=== PATIENT | female | born 1940 | race Two or more races ===

== ENCOUNTER 2020-07-25 08:11 | Inpatient (IN) | payer MEDICARE, OTHER ==
[~2020-07-25] VITALS: Ht 152.4 cm; Wt 38.1 kg
[2020-07-25] VITALS (7 sets, daily range): BP systolic 133–166; BP diastolic 55–94
--- NOTE | 2020-07-25 08:22 | Emergency Room Report ---
History of Present Illness General Chief Complaint: General Complaint Source: Patient, EMS Present Illness HPI Patient is a 80-year-old female past medical history of hyperlipidemia and dementia who was brought into the emergency room for right hip pain. Patient was brought in by EMS from home. Per EMS patient is confused at baseline. Family members told EMS the patient has been laying in bed for a week due to right hip pain. They do not recall any falls or trauma. Patient states that she has pain in her abdomen and her right hip. She denies any headache or dizziness. She denies any chest pain or shortness of breath. History is limited due to patient's baseline confusion Allergies: Coded Allergies: No Known Allergies (Unverified , 07/25/20) COVID-19 Screening Contact w/high risk pt: No Experienced COVID-19 symptoms?: No COVID-19 Testing performed AGING DEPARTMENT SUPERVISOR: No Patient History Reviewed Nursing Documentation: PMH: Agreed; PSxH: Agreed Review of Systems All Other Systems: limited - dementia Physical Exam Vital Signs Date Time Temp Pulse Resp B/P (MAP) Pulse Ox O2 Delivery O2 Flow Rate FiO2 07/25/20 08:09 98.2 95 16 162/96 (118) 99 Room Air Sp02 EP Interpretation: reviewed, normal General Appearance: no apparent distress, alert, non-toxic Head: normocephalic, atraumatic Eyes: bilateral eye normal inspection, bilateral eye PERRL ENT: dry mucus membranes Neck: full range of motion, no meningismus Respiratory: chest non-tender, lungs clear, no respiratory distress, no accessory muscle use Cardiovascular #1: regular rate, rhythm Gastrointestinal: soft, no guarding, no rebound, other - Complains of abdominal tenderness but I cannot elicit any pain on my examination. Rectal: deferred Musculoskeletal: other - Right hip tenderness on passive range of motion diffuse L-spine tenderness to palpation Neurologic: exercise specialist III-XII nml as tested Psychiatric: no suicidal/homicidal ideation Skin: no rash Lymphatic: no adenopathy Medical Decision Making Diagnostic Impression: Primary Impression: Burst fracture of lumbar vertebra Additional Impressions: Hematoma Spinal stenosis ER Course Patient CT consistent with burst fracture of L2 about 10 to 20% at the superior endplate with mild surrounding hematoma and moderate central spinal stenosis as well as an additional 20% superior plate burst fracture of L3 which appears acute to subacute. Patient's labs demonstrate no significant acute abnormalities. Patient given IV fentanyl for pain control. Patient is neurologically intact. She has no saddle anesthesia. She has no focal neurologic deficits. No severe stenosis seen on CT. Patient kept in spinal precautions. MRI of the lumbar spine has been ordered and is pending at the time of admission. Admitting physician to follow-up on this and will call spinal consultation. Patient be admitted for further treatment and evaluation. Laboratory Tests Test 07/25/20 08:16 07/25/20 09:20 White Blood Count 5.4 K/UL (4.8-10.8) Red Blood Count 4.75 M/UL (4.20-5.40) Hemoglobin 14.5 G/DL (12.0-16.0) Hematocrit 45.4 % (37.0-47.0) Mean Corpuscular Volume 96 FL (80-99) Mean Corpuscular Hemoglobin 30.5 PG (27.0-31.0) Mean Corpuscular Hemoglobin Concent 31.9 G/DL (32.0-36.0) L Red Cell Distribution Width 11.9 % (11.6-14.8) Platelet Count 304 K/UL (150-450) Mean Platelet Volume 6.6 FL (6.5-10.1) Neutrophils (%) (Auto) 75.7 % (45.0-75.0) H Lymphocytes (%) (Auto) 16.5 % (20.0-45.0) L Monocytes (%) (Auto) 6.1 % (1.0-10.0) Eosinophils (%) (Auto) 0.4 % (0.0-3.0) Basophils (%) (Auto) 1.3 % (0.0-2.0) Prothrombin Time 10.7 SEC (9.30-11.50) Prothrombin Time INR 1.0 (0.9-1.1) Activated Partial Thromboplast Time 26 SEC (23-33) Sodium Level 140 MMOL/L (136-145) Potassium Level 4.2 MMOL/L (3.5-5.1) Chloride Level 101 MMOL/L (98-107) Carbon Dioxide Level 21 MMOL/L (21-32) Anion Gap 18 mmol/L (5-15) H Blood Urea Nitrogen 30 mg/dL (7-18) H Creatinine 0.7 MG/DL (0.55-1.30) Estimated Glomerular Filtration Rate > 60 mL/min (>60) Glucose Level 170 MG/DL (74-106) H Calcium Level 9.4 MG/DL (8.5-10.1) Magnesium Level 2.0 MG/DL (1.8-2.4) Total Bilirubin 0.9 MG/DL (0.2-1.0) Aspartate Amino Transferase (AST) 32 U/L (15-37) Alanine Aminotransferase (ALT) 15 U/L (12-78) Alkaline Phosphatase 111 U/L (46-116) Total Creatine Kinase 164 U/L (26-308) Troponin I 0.035 ng/mL (0.000-0.056) Total Protein 8.4 G/DL (6.4-8.2) H Albumin 3.8 G/DL (3.4-5.0) Globulin 4.6 g/dL Albumin/Globulin Ratio 0.8 (1.0-2.7) L Lipase 97 U/L (73-393) Urine Color Yellow Urine Appearance Clear Urine pH 5 (4.5-8.0) Urine Specific [place] 1.030 (1.005-1.035) Urine Protein 2+ (NEGATIVE) H Urine Glucose (UA) Negative (NEGATIVE) Urine Ketones 4+ (NEGATIVE) H Urine Blood 3+ (NEGATIVE) H Urine Nitrite Negative (NEGATIVE) Urine Bilirubin Negative (NEGATIVE) Urine Urobilinogen Normal MG/DL (0.0-1.0) Urine Leukocyte Esterase Negative (NEGATIVE) Urine RBC 2-4 /HPF (0 - 2) H Urine WBC 0-2 /HPF (0 - 2) Urine Squamous Epithelial Cells Few /LPF (NONE/OCC) Urine Bacteria Few /HPF (NONE) Microbiology Date/Time Source Procedure Growth Status 07/25/20 08:26 Nasopharynx SARS-CoV-2 Antigen (Rapid)(MAXI) - Final Complete EKG Diagnostic Results Troponin ordered: Yes When was troponin ordered?: Jul 25, 2020 EKG Time: 08:14 EP Interpretation: Earlene Piper MD Rate: normal - 79 bpm Rhythm: NSR ST Segments: other - T wave inversions V1 through V4 with ST depressions in V2 and V3 shaky baseline ASA given to the pt in ED: No Rhythm Strip Diag. Results Rhythm Strip Time: 08:21 EP Interpretation: yes - Earlene Piper MD Rate: 79 bpm Rhythm: NSR, no PVC's, no ectopy Chest X-Ray Diagnostic Results Chest X-Ray Diagnostic Results : Chest X-Ray Ordered: Yes # of Views/Limited/Complete: 1 View Indication: Other - weakness EP Interpretation: Yes Interpretation: no consolidation, no effusion, no pneumothorax, no acute cardiopulmonary disease Impression: No acute disease Electronically Signed by: Earlene Piper MD Last Vital Signs Date Time Temp Pulse Resp B/P (MAP) Pulse Ox O2 Delivery O2 Flow Rate FiO2 07/25/20 08:09 98.2 95 16 162/96 (118) 99 Room Air Disposition: ADMITTED INPATIENT - Medical Surgical Floor Condition: Critical Physician Consult: Dr. Joy at 11 am Additional Instructions: Please note that this report is being documented using [employer] technology. This can lead to erroneous entry secondary to incorrect interpretation by the dictating instrument. Earlene Piper M.D. Jul 25, 2020 08:22
[2020-07-25] MEDS ORDERED: fentaNYL 100 mcg/2 mL IV ONE ×2 (08:30→10:15)
[2020-07-25 08:36] LABS: BASOPHILS % (AUTO) 1.3 % (0.0-2.0); EOSINOPHILS % (AUTO) 0.4 % (0.0-3.0); HEMATOCRIT 45.4 % (37.0-47.0); HEMOGLOBIN 14.5 G/DL (12.0-16.0); LYMPHOCYTES % (AUTO) 16.5 % (20.0-45.0); MEAN CORPUSCULAR VOLUME 96 FL (80-99); MONOCYTES % (AUTO) 6.1 % (1.0-10.0); NEUTROPHILS % (AUTO) 75.7 % (45.0-75.0); PLATELET COUNT 304 K/UL (150-450); RED BLOOD COUNT 4.75 M/UL (4.20-5.40); RED CELL DISTRIBUTION WIDTH 11.9 % (11.6-14.8); WHITE BLOOD COUNT 5.4 K/UL (4.8-10.8)
[2020-07-25 08:48] LABS: ANION GAP 18 mmol/L (5-15); BLOOD UREA NITROGEN 30 mg/dL (7-18); CALCIUM 9.4 MG/DL (8.5-10.1); CARBON DIOXIDE 21 MMOL/L (21-32); CHLORIDE 101 MMOL/L (98-107); CREATININE 0.7 MG/DL (0.55-1.30); POTASSIUM 4.2 MMOL/L (3.5-5.1); SODIUM 140 MMOL/L (136-145)
--- NOTE | 2020-07-25 08:50 | NUR ---
pt BIBA from home for R hip pain. pt laying in bed per family, refusing to walk. on arrival, pt has pain with palpation to R hip. pt A&Ox3, unable to states birthday. pt undergoing eval for dementia per family. this is pt baseline. pt denies falling at home. pt denies pmh. IV placed, labs drawn. pt medicated per eMAR. EKG performed. pt on continuous cardiac/O2 monitor. 0845: pt taken to CT 0853: pt back from CT
[2020-07-25 08:51] LABS: ALANINE AMINOTRANSFERASE 15 U/L (12-78); ALBUMIN 3.8 G/DL (3.4-5.0); ALBUMIN/GLOBULIN RATIO 0.8 (1.0-2.7); ALKALINE PHOSPHATASE 111 U/L (46-116); ASPARTATE AMINO TRANSFERASE 32 U/L (15-37); BILIRUBIN,TOTAL 0.9 MG/DL (0.2-1.0)
[2020-07-25 08:53] LABS: CREATINE KINASE 164 U/L (26-308)
--- NOTE | 2020-07-25 08:59 | Diagnostic Imaging Report ---
EXAM: XR Chest, 1 View CLINICAL HISTORY: ABD PAIN TECHNIQUE: Frontal view of the chest. COMPARISON: No relevant prior studies available. FINDINGS: Lungs: Unremarkable. No consolidation. Pleural space: Unremarkable. No pneumothorax. Heart: Unremarkable. No cardiomegaly. Mediastinum: Unremarkable. Bones/joints: Unremarkable. IMPRESSION: Normal chest x-ray.
--- NOTE | 2020-07-25 09:02 | Diagnostic Imaging Report ---
EXAM: XR Right Hip With Pelvis When Performed, 2 or 3 Views CLINICAL HISTORY: ABD PAIN TECHNIQUE: Two or three views of the right hip with pelvis when performed. COMPARISON: No relevant prior studies available. FINDINGS: Bones/joints: Unremarkable. No acute fracture. No dislocation. Soft tissues: Unremarkable. IMPRESSION: Normal right hip x-rays.
--- NOTE | 2020-07-25 09:23 | Diagnostic Imaging Report ---
EXAM: CT Abdomen and Pelvis Without Intravenous Contrast CLINICAL HISTORY: ABD PAIN TECHNIQUE: Axial computed tomography images of the abdomen and pelvis without intravenous contrast. CTDI is 2 mGy and DLP is 113 mGy-cm. One or more of the following dose reduction techniques were used: automated exposure control, adjustment of the mA and/or kV according to patient size, use of iterative reconstruction technique. COMPARISON: No relevant prior studies available. FINDINGS: Lung bases: Unremarkable. No mass. No consolidation. ABDOMEN: Liver: Unremarkable. Gallbladder and bile ducts: Unremarkable. No calcified stones. No ductal dilation. Pancreas: Unremarkable. No ductal dilation. Spleen: Unremarkable. No splenomegaly. Adrenals: Unremarkable. No mass. Kidneys and ureters: Unremarkable. No obstructing stones. No hydronephrosis. Stomach and bowel: Unremarkable. No obstruction. No mucosal thickening. PELVIS: Appendix: No findings to suggest acute appendicitis. Bladder: There is moderate distention of urinary bladder consistent with urinary retention. No stones. Reproductive: Unremarkable as visualized. ABDOMEN and PELVIS: Intraperitoneal space: Unremarkable. No free air. No significant fluid collection. Bones/joints: There is a 10-20% superior endplate burst fracture of L2 which appears acute with mild surrounding hematoma. There is a 3 mm retropulsion of fracture fragments with moderate central spinal stenosis with the AP dimension central canal measuring 7 mm. There is an additional 20% superior plate burst fracture of L3 which has an acute to subacute appearance. No significant retropulsed fragments identified at this level. No additional lumbar spine or pelvic fractures are identified. No dislocation. Soft tissues: Unremarkable. Vasculature: Unremarkable. No abdominal aortic aneurysm. Lymph nodes: Unremarkable. No enlarged lymph nodes. IMPRESSION: 1. There is a 10-20% superior endplate burst fracture of L2 which appears acute with mild surrounding hematoma. There is a 3 mm retropulsion of fracture fragments with moderate central spinal stenosis with the AP dimension central canal measuring 7 mm. There is an additional 20% superior plate burst fracture of L3 which has an acute to subacute appearance. No significant retropulsed fragments identified at this level. 2. There is moderate distention of urinary bladder consistent with urinary retention. <MYCVCSECTION> Communications: 07/25/20 09:32 Verify Receipt Verified receipt with skiver machineParesh Vallecillo in the ER for Dr. Shepard on 07/25 09:32 (-08:00)
[2020-07-25] MEDS ORDERED: Gadavist 7.5mMol/7.5ml vial IV PRN (09:30)
[2020-07-25 09:34] LABS: APPEARANCE,URINE CLEAR; BILIRUBIN, URINE NEGATIVE (NEGATIVE); GLUCOSE, URINE (UA) NEGATIVE (NEGATIVE); KETONES,URINE 4+ (NEGATIVE); LEUKOCYTE ESTERASE ,URINE NEGATIVE (NEGATIVE); NITRITE,URINE NEGATIVE (NEGATIVE); PH,URINE 5 (4.5-8.0); PROTEIN,URINE 2+ (NEGATIVE); UROBILINOGEN,URINE NORMAL MG/DL (0.0-1.0)
[2020-07-25] MEDS ORDERED: LORazepam Inj 2mg/ml 1ml IV ONE (10:15)
[2020-07-25 10:18] LABS: COLOR,URINE YELLOW
--- NOTE | 2020-07-25 10:26 | NUR ---
0900: pt on continuous cardiac/O2 monitor. educated pt to lay flat to decrease pain. 1015: pt restless. updated. medicated per eMAR. pt on continuous cardiac/O2 monitor. VSS. will continue to monitor.
[2020-07-25] MEDS ORDERED: Morphine Sulfate 4mg/ml Inj (IV USE ONLY) IVP ONE (14:30)
--- NOTE | 2020-07-25 14:43 | NUR ---
1130: pt resting in bed. pt on continuous cardiac/O2 monitor. will continue to assess. no signs of distress noted at this time. 1330: pt resting in bed. pt on continuous cardiac/O2 monitor. will continue to assess. no signs of distress noted at this time. 1400: pt in room. pt pulled out IV access. pt took off all monitor leads. 1435: placed second iv. wrapped with gauze to protect site. pt placed on monitor. pt now resting in bed. will continue to monitor. no signs of distress noted. pt medicated per eMAR. VSS. seizure pads placed on bedrails to provide extra protection & comfort if pt rolls in bed.
[2020-07-25] MEDS: D5NS 1,000 ML IV SCH ×2 (15:24→22:14)
[2020-07-25] MEDS: Docusate 250mg cap ORAL SCH (18:00)
--- NOTE | 2020-07-25 18:09 | NUR ---
1600: pt resting in bed. given po fluids. pt calm & cooperative. will continue to monitor. VSS at this time. 1800: attempted to call report, no RN available for report. pt on continuous cardiac/O2 monitor. will continue to monitor. VSS.
--- NOTE | 2020-07-25 18:18 | NUR ---
pt resting in bed. no signs of distress. pt sleeping. on continuous cardiac/O2 monitor. VSS. will continue to monitor.
[2020-07-25] MEDS ORDERED: Morphine Sulfate 2mg/ml Inj(IV/IM USE ONLY) IVP PRN (22:00)
[2020-07-25] MEDS: Heparin 5000 units/ml inj SUBQ SCH (22:14)
[2020-07-26] VITALS (7 sets, daily range): BP systolic 90–166; BP diastolic 57–94
[2020-07-26] MEDS: HYDROcodone/Acetamin 10/325 tab ORAL PRN ×2 (00:49→15:45)
--- NOTE | 2020-07-26 06:28 | NUR ---
NURSE HAND-OFF: Important Events on Shift: no significant changes noted since time of admission. pain managed well with ordered medication with good results. continues to be confused too and forgetful; needs repeated re-orientation; bed alarm on at all times. admission skin assessment done and completed; no open pressure injuries; all pressure points intact; noted however was the right hip with blanchable redness; optifoam applied on sacral/coccyx and bilateral hips. VSS; afebrile. Patient Status: stable Diet: see chart Pending Orders: see chart Pending Results/Labs: see chart Pending MD notification:see chart Latest Vital Signs: Temperature 98.5 , Pulse 67 , B/P 93 /57 , Respiratory Rate 18 , O2 SAT 95 , Room Air, O2 Flow Rate . Vital Sign Comment: see above Latest Shah Fall Score: 70 Fall Risk: High Risk Safety Measures: Call light Within Reach, Bed Alarm Zone 2, Side Rails Side Rails x2, Bed position Low and Locked. Fall Precautions: Yellow Socks Door Sign Patient Fall Education Report will be given to DAWN Jean
--- NOTE | 2020-07-26 07:45 | NUR ---
NURSE NOTES: Pt lying in bed w/bed in lowest position, bed alarm on, and call light within reach. Pt knows name only and is very confused. IV site intact/asymptomatic w/IVF infusing; F/C patent/draining well; and skin intact. Will continue to monitor.
--- NOTE | 2020-07-26 08:14 | History and Physical Report ---
DATE OF ADMISSION: 07/25/2020 CHIEF COMPLAINT: Back pain. HISTORY OF PRESENT ILLNESS: This is a 80-year-old female brought in by family members with complaints of difficulty getting out of bed and generalized pain. The patient denies any recent falls or trauma. In the ER, she had a CT scan of the back that showed a L2 20% burst compression fracture with a small amount of a hematoma. The patient denies any focal weakness, numbness, or incontinence. Chest x-ray was unremarkable as was a hip x-ray. She is now admitted for further evaluation. PAST MEDICAL HISTORY: None. PAST SURGICAL HISTORY: None. CURRENT MEDICATIONS: None. FAMILY HISTORY: None. SOCIAL HISTORY: The patient denies any tobacco, ethanol, or drugs. REVIEW OF SYSTEMS: Positive only for back pain. PHYSICAL EXAMINATION: VITAL SIGNS: Temperature 98, pulse 67, respirations 18, and blood pressure 93/57. GENERAL: The patient is well developed, in no apparent distress. HEART: Regular rate and rhythm. LUNGS: Clear. ABDOMEN: Soft, nontender and nondistended. EXTREMITIES: Without clubbing, cyanosis, or edema. Motor strength is 5/5 bilaterally. Sensation is intact bilaterally. Reflexes 2+. LABORATORY DATA: Labs are normal coags. White count was 5, hemoglobin 14, and platelets 304,000. Sodium 140, potassium 4.2, and creatinine 0.7. ASSESSMENT: This is a 80-year-old female with no past medical history, who presents with complaints of back pain secondary to compression fracture of the lumbar spine. PLAN: MRI of the L-spine. We will try to obtain spine consultation. PT/OT evaluations will be obtained. Plan of care will be determined after review of MRI. The patient may need to be transferred for higher level of care pending MRI results. Hubert Joy M.D. DR: Troy JOB#: [id number] CC:
[2020-07-26] MEDS: Heparin 5000 units/ml inj SUBQ SCH ×2 (08:27→20:46)
[2020-07-26] MEDS: Docusate 250mg cap ORAL SCH ×2 (08:28→18:13)
--- NOTE | 2020-07-26 09:12 | NUR ---
RD ASSESSMENT & RECOMMENDATIONS SEE CARE ACTIVITY FOR COMPLETE ASSESSMENT DAILY ESTIMATED NEEDS: Needs based on Underweight 37.3kg 30-40 kcals/kg 7195-6833 total kcals 1-1.5 g protein/kg 37-56 g total protein 25-35ml/kcal mL/kg 933-1306 total fluid mLs NUTRITION DIAGNOSIS: Increased kcal and pro needs r/t underweight status as evidenced by noted upper body moderate wasting, underweight per guidelines, @84% [place] Body Weight. CURRENT DIET: regular PO DIET RECOMMENDATIONS: Regular diet/ texture per HEALTH MANAGER ADDITIONAL RECOMMENDATIONS: 1) Ensure TID 2) Obtain A1C, eval of BG 3) Monitor hydration status 4) Daily calibrated bed scale wts 5) HEALTH MANAGER eval for appropriate texture
[2020-07-26] MEDS ORDERED: Haloperidol Decanoate (Long Acting) 50mg Inj IM ONE (17:15)
[2020-07-26] MEDS ORDERED: Haloperidol 5mg/ml Inj IM SCH (17:45)
--- NOTE | 2020-07-26 19:37 | NUR ---
NURSE HAND-OFF: Important Events on Shift: Pt pulled IV out twice and F/C; re-inserted by RN; administered Haldol IM for increased agitation and pt's continued attempts to get out of bed. Pt scheduled to have MRI L/S; CM to coordinate imaging study since no one available presently to do it. Patient Status: Stable Diet: Regular Pending Orders: None Pending Results/Labs: None Pending MD notification: None Latest Vital Signs: Temperature 98.4 , Pulse 83 , B/P 156 /93 , Respiratory Rate 20 , O2 SAT 97 , Room Air, O2 Flow Rate . Vital Sign Comment: Stable Latest Shah Fall Score: 70 Fall Risk: High Risk Safety Measures: Call light Within Reach, Bed Alarm Zone 2, Side Rails Side Rails x2, Bed position Low and Locked. Fall Precautions: Yellow Socks Door Sign Patient Fall Education Report given to DAWN Antonio.
[2020-07-27] VITALS (7 sets, daily range): BP systolic 120–179; BP diastolic 80–94
[2020-07-27] MEDS: D5NS 1,000 ML IV SCH (04:58)
--- NOTE | 2020-07-27 06:08 | NUR ---
NURSE HAND-OFF: Important Events on Shift: no significant changes noted this shift. No c/o of pain, SOBs or any distress. Slept most of the night, no episodes of trying to get out of bed, pulling lines or mary cath or restlessness; bed alarm on at all times. VSS; afebrile. continues to have no issues with skin integrity. Patient Status: stable Diet: see chart Pending Orders: see chart Pending Results/Labs:see chart Pending MD notification:see chart Latest Vital Signs: Temperature 97.5 , Pulse 76 , B/P 124 /83 , Respiratory Rate 16 , O2 SAT 97 , Room Air, O2 Flow Rate . Vital Sign Comment: see above Latest Shah Fall Score: 70 Fall Risk: High Risk Safety Measures: Call light Within Reach, Bed Alarm Zone 2, Side Rails Side Rails x3, Bed position Low and Locked. Fall Precautions: Yellow Socks Door Sign Patient Fall Education Report will be given to DAWN Brewster.
[2020-07-27] MEDS: HYDROcodone/Acetamin 10/325 tab ORAL PRN ×3 (08:20→22:04)
[2020-07-27] MEDS: Docusate 250mg cap ORAL SCH ×2 (08:29→17:39)
[2020-07-27] MEDS: Heparin 5000 units/ml inj SUBQ SCH ×2 (08:30→20:30)
--- NOTE | 2020-07-27 11:40 | NUR ---
CRM ANALYST NOTE PT reports she recently moved to a house and the address on facesheet is her previous address: [address] [place] [address]. Pt reports she is currently living w/ her son. Pt reports having one unmarried son, Travis Lang. SW attempted to call possible numbers for Travis Lang [phone] (vm not available) and [phone], call were not answered.
--- NOTE | 2020-07-27 11:57 | NUR ---
RESEARCH PROGRAM INTERN NOTE SLY will call back ER registration for ambulance report #[id number] at 12:30pm. Addendum: 07/27/20 at 1342 by [facility] SLY spoke pari Garrison and will look for ambulance report and fax it to this SW #[id number]
--- NOTE | 2020-07-27 12:39 | NUR ---
INVESTOR RELATIONS SPECIALIST NOTE SW spoke w/ [facility] [phone], confirmed that pt is not reported as missing. Jenni Trotter
--- NOTE | 2020-07-27 13:38 | NUR ---
Pt is bilingual Ukrainian and Hungarian
--- NOTE | 2020-07-27 16:31 | General Progress Note ---
Subjective ROS Limited/Unobtainable: Yes Constitutional: Reports: no symptoms HEENT: Reports: no symptoms Cardiovascular: Reports: no symptoms Respiratory: Reports: no symptoms Gastrointestinal/Abdominal: Reports: no symptoms Genitourinary: Reports: no symptoms Neurologic/Psychiatric: Reports: no symptoms Endocrine: Reports: no symptoms Hematologic/Lymphatic: Reports: no symptoms Allergies: Coded Allergies: No Known Allergies (Unverified , 07/25/20) All Systems: reviewed and negative except above Subjective c/o back pain. no focal weakness or numbness. no incontinence Objective Last 24 Hour Vital Signs Date Time Temp Pulse Resp B/P (MAP) Pulse Ox O2 Delivery O2 Flow Rate FiO2 07/27/20 15:55 97.9 83 18 138/93 (108) 98 07/27/20 14:32 97.9 07/27/20 12:00 97.9 72 18 120/80 (93) 96 07/27/20 09:00 Room Air 07/27/20 08:50 98.1 07/27/20 07:53 98.1 94 19 153/89 (110) 95 07/27/20 04:00 97.5 76 16 124/83 (97) 97 07/27/20 00:00 96.4 78 16 128/87 (101) 98 07/26/20 21:00 Room Air 07/26/20 20:00 98.4 74 16 140/77 (98) 99 Intake and Output 07/26/20 07/27/20 19:00 07:00 Intake Total 890 ml 840 ml Output Total 1400 ml 350 ml Balance -510 ml 490 ml Intake Oral 840 ml 240 ml IV Total 50 ml 600 ml Output Urine Total 1400 ml 350 ml Height (Feet): 5 Weight (Pounds): 84 General Appearance: WD/WN Neck: supple Cardiovascular: regular rhythm Respiratory/Chest: chest wall non-tender, lungs clear, normal breath sounds Edema: no edema noted Leg (L), no edema noted Leg (R) Neurologic: manager production II-XII grossly normal, alert Assessment/Plan Problem List: (1) Spinal stenosis ICD Codes: M48.00 - Spinal stenosis, site unspecified SNOMED: 58054945 (2) Hematoma ICD Codes: T14.8XXA - Other injury of unspecified body region, initial encounter SNOMED: 117122269 (3) Burst fracture of lumbar vertebra ICD Codes: S32.001A - Stable burst fracture of unspecified lumbar vertebra, initial encounter for closed fracture SNOMED: 436742589 Status: stable Assessment/Plan: mri lumbar spine back brace psychotherapist social worker to locate family Hubert Joy MD Jul 27, 2020 16:31
--- NOTE | 2020-07-27 18:33 | NUR ---
NURSE NOTES: PATIENT STABLE. CONFUSED; NEEDS RE DIRECTION. BED ALARM ON BED IN LOW AND LOCKED POSITION. HOURLY DONE MORE FREQUENT.
--- NOTE | 2020-07-27 19:29 | NUR ---
NURSE HAND-OFF: Important Events on Shift: NONE Patient Status: STABLE Diet: REGULAR Pending Orders: MRI L-SPINE/ NEED TO BE TRANSFERRED TO [facility] TO GET TEST DONE. Pending Results/Labs:N/A Pending MD notification: N/A Latest Vital Signs: Temperature 97.9 , Pulse 83 , B/P 138 /93 , Respiratory Rate 18 , O2 SAT 98 , Room Air. Vital Sign Comment: [] Latest Shah Fall Score: 95 Fall Risk: High Risk Safety Measures: Call light Within Reach, Bed Alarm Zone 2, Side Rails Side Rails x2, Bed position Low and Locked. Fall Precautions: Door Sign Patient Fall Education Report given to AGUSTO SEYMOUR.
--- NOTE | 2020-07-27 19:37 | NUR ---
NURSE NOTES: Patient asleep in bed, on room air no respiratory distress noted. With Zaman catheter intact and draining well. Call light and needs in reach, bed in lowest, lock engaged and alarm on. Will continue to monitor.
[2020-07-28] VITALS: BP 123/77
--- NOTE | 2020-07-28 | NUR ---
NURSE NOTES: Patient had increased blood pressure, Dr. Joy made aware. Clonidine was ordered by . Mcclure was given to patient before Clonidine order was obtained. Will continue to monitor patient.
--- NOTE | 2020-07-28 01:04 | Cardiology Progress Note ---
Subjective DATE OF SERVICE: Jul 27, 2020 Still c/o back pain No SOB or chest discomfort Objective Last 24 Hour Vital Signs Date Time Temp Pulse Resp B/P (MAP) Pulse Ox O2 Delivery O2 Flow Rate FiO2 07/27/20 21:30 179/94 (122) 07/27/20 21:00 Room Air 07/27/20 20:00 97.9 83 16 162/91 (114) 97 07/27/20 15:55 97.9 83 18 138/93 (108) 98 07/27/20 14:32 97.9 07/27/20 12:00 97.9 72 18 120/80 (93) 96 07/27/20 09:00 Room Air 07/27/20 08:50 98.1 07/27/20 07:53 98.1 94 19 153/89 (110) 95 07/27/20 04:00 97.5 76 16 124/83 (97) 97 HEENT: normal ENT inspection LUNGS: lungs clear bilaterally CARDIAC: normal rate, regular rhythm ABDOMEN: normal bowel sounds, non tender EXTREMITIES: normal range of motion, No edema Microbiology Date/Time Source Procedure Growth Status 07/25/20 08:26 Nasopharynx SARS-CoV-2 Antigen (Rapid)(MAXI) - Final Complete Assessment/Plan Assessment/Plan Acute compression fx Acute pain Abnormal EKG suggesting incomplete RBBB. No clinical hx or symptoms to suggest structural heart disease Pain control DVT prophyl Repeat EKG Check TSH Eugene Krishnan MD Jul 28, 2020 01:04
[2020-07-28 04:00] VITALS: BP 127/69
[2020-07-28 06:11] LABS: BASOPHILS % (AUTO) 1.7 % (0.0-2.0); HEMATOCRIT 41.3 % (37.0-47.0); HEMOGLOBIN 13.4 G/DL (12.0-16.0); LYMPHOCYTES % (AUTO) 26.5 % (20.0-45.0); MEAN CORPUSCULAR VOLUME 95 FL (80-99); MONOCYTES % (AUTO) 6.3 % (1.0-10.0); NEUTROPHILS % (AUTO) 59.5 % (45.0-75.0); PLATELET COUNT 277 K/UL (150-450); RED BLOOD COUNT 4.37 M/UL (4.20-5.40); RED CELL DISTRIBUTION WIDTH 11.7 % (11.6-14.8); WHITE BLOOD COUNT 5.2 K/UL (4.8-10.8)
[2020-07-28 07:00] LABS: ALANINE AMINOTRANSFERASE 22 U/L (12-78); ALBUMIN 3.2 G/DL (3.4-5.0); ALBUMIN/GLOBULIN RATIO 0.8 (1.0-2.7); ALKALINE PHOSPHATASE 99 U/L (46-116); ANION GAP 6 mmol/L (5-15); ASPARTATE AMINO TRANSFERASE 22 U/L (15-37); BILIRUBIN,TOTAL 0.4 MG/DL (0.2-1.0); BLOOD UREA NITROGEN 11 mg/dL (7-18); CALCIUM 9.1 MG/DL (8.5-10.1); CARBON DIOXIDE 34 MMOL/L (21-32); CHLORIDE 104 MMOL/L (98-107); CREATININE 0.7 MG/DL (0.55-1.30); POTASSIUM 2.9 MMOL/L (3.5-5.1); SODIUM 143 MMOL/L (136-145)
--- NOTE | 2020-07-28 07:45 | NUR ---
NURSE NOTES: Received report from DAWN Whitehead. Round was made. Pt awake, A&Ox2. Noted pt tried to go to bathroom and mary cath was pulled out. No bleeding noted. Pt no c/o pain at this time. Pt stated that pt did not know she had Mary cath so I just walked. educated pt not to get out of bed without assistance and use call light foe help. Pt verbalized understanding. Will reinsert Mary. No IV, aware. Bed in low position, locked and alarm on. Call light within reach. Will continue to monitor.
[2020-07-28 08:00] VITALS: BP 167/82
[2020-07-28] MEDS: Docusate 250mg cap ORAL SCH ×2 (08:56→17:30)
[2020-07-28] MEDS: Heparin 5000 units/ml inj SUBQ SCH ×2 (08:58→20:28)
--- NOTE | 2020-07-28 10:10 | NUR ---
NURSE NOTES: EKG done and showed Afilb. Also noted Potassium was 2.9 today. MD aware and obtained new order, order carried out. BP 167/82, HR: 68. Clonidine 0.1mg given. Will continue to monitor.
[2020-07-28 12:00] VITALS: BP 160/99
[2020-07-28] MEDS: HYDROcodone/Acetamin 10/325 tab ORAL PRN ×2 (13:13→20:27)
--- NOTE | 2020-07-28 13:33 | NUR ---
ACCOUNTING CLERK NOTES SPOKE WITH PATIENT'S SON GUS KAPLAN VERIFIED DEMOGRAPHICS. MADE AWARE OF PT TO BE TRANSFERRED OUT FOR A MRI. GUS AGREES WITH THE PLAN OF CARE AT THIS TIME. NEW INFORMATION SENT TO ADMITTING FOR AN UPDATED FACE SHEET. GUS KAPLAN [address] [place] [address]
--- NOTE | 2020-07-28 14:23 | General Progress Note ---
Subjective ROS Limited/Unobtainable: No Constitutional: Reports: malaise, weakness HEENT: Reports: no symptoms Cardiovascular: Reports: no symptoms Respiratory: Reports: no symptoms Gastrointestinal/Abdominal: Reports: no symptoms Genitourinary: Reports: no symptoms Neurologic/Psychiatric: Reports: no symptoms Endocrine: Reports: no symptoms Hematologic/Lymphatic: Reports: no symptoms Allergies: Coded Allergies: No Known Allergies (Unverified , 07/25/20) All Systems: reviewed and negative except above Subjective c/o back pain. no focal weakness or numbness. no incontinence Objective Last 24 Hour Vital Signs Date Time Temp Pulse Resp B/P (MAP) Pulse Ox O2 Delivery O2 Flow Rate FiO2 07/28/20 13:43 98.2 07/28/20 12:00 97.7 83 20 160/99 (119) 96 07/28/20 10:08 167/82 07/28/20 09:00 Room Air 07/28/20 08:00 97.7 68 20 167/82 (110) 97 07/28/20 04:00 98.2 64 20 127/69 (88) 96 07/28/20 00:00 97.9 92 20 123/77 (92) 96 07/27/20 21:30 179/94 (122) 07/27/20 21:00 Room Air 07/27/20 20:00 97.9 83 16 162/91 (114) 97 07/27/20 15:55 97.9 83 18 138/93 (108) 98 07/27/20 14:32 97.9 Intake and Output 07/27/20 07/28/20 19:00 07:00 Intake Total 300 ml Output Total 1850 ml 500 ml Balance -1550 ml -500 ml IV Total 300 ml Output Urine Total 1850 ml 500 ml Laboratory Tests 07/28/20 05:38: White Blood Count 5.2, Red Blood Count 4.37, Hemoglobin 13.4, Hematocrit 41.3, Mean Corpuscular Volume 95, Mean Corpuscular Hemoglobin 30.7, Mean Corpuscular Hemoglobin Concent 32.5, Red Cell Distribution Width 11.7, Platelet Count 277, M jade Platelet Volume 6.3L, Neutrophils (%) (Auto) 59.5, Lymphocytes (%) (Auto) 26.5, Monocytes (%) (Auto) 6.3, Eosinophils (%) (Auto) 6.0H, Basophils (%) (Auto) 1.7, Sodium Level 143, Potassium Level 2.9L, Chloride Level 104, Carbon Dioxide Level 34H, Anion Gap 6, Blood Urea Nitrogen 11, Creatinine 0.7, Estimat Glomerular Filtration Rate > 60, Glucose Level 98, Calcium Level 9.1, Total Bilirubin 0.4, Aspartate Amino Transf (AST/SGOT) 22, Alanine Aminotransferase (ALT/SGPT) 22, Alkaline Phosphatase 99, Total Protein 7.0, Albumin 3.2L, Globuli n 3.8, Albumin/Globulin Ratio 0.8L, Thyroid Stimulating Hormone (TSH) 0.786 Height (Feet): 5 Weight (Pounds): 84 General Appearance: WD/WN, alert EENT: PERRL/EOMI, normal ENT inspection Neck: non-tender, normal alignment, normal inspection Cardiovascular: normal peripheral pulses, normal rate, regular rhythm Respiratory/Chest: chest wall non-tender, lungs clear, normal breath sounds, no respiratory distress Edema: no edema noted Arm (L), no edema noted Arm (R), no edema noted Leg (L), no edema noted Leg (R) Neurologic: alert, oriented x 3 Assessment/Plan Problem List: (1) Spinal stenosis ICD Codes: M48.00 - Spinal stenosis, site unspecified SNOMED: 41347372 (2) Hematoma ICD Codes: T14.8XXA - Other injury of unspecified body region, initial encounter SNOMED: 365181688 (3) Burst fracture of lumbar vertebra ICD Codes: S32.001A - Stable burst fracture of unspecified lumbar vertebra, initial encounter for closed fracture SNOMED: 842646035 Status: stable Assessment/Plan: mri lumbar spine back brace social media sr strategy manager to locate family spine eval pending cards follow up re: Hubert Templeton MD Jul 28, 2020 14:23
--- NOTE | 2020-07-28 15:54 | NUR ---
*-*DISCHARGE PLANNING*-* CLINICALS FAXED TO [facility] P: [phone] S/W SUSAN, FOLLOW UP TOMORROW
[2020-07-28 16:00] VITALS: BP 139/109
--- NOTE | 2020-07-28 19:48 | NUR ---
NURSE HAND-OFF: Important Events on Shift:[Pt pulled out Mary, D/C mary, EKG showed Afib, MD aware. Pt confused trying to walk to bathroom without assist] Patient Status: [] Diet: [Reg] Pending Orders: [] Pending Results/Labs:[] Pending MD notification:[] Latest Vital Signs: Temperature 98.4 , Pulse 73 , B/P 139 /109 , Respiratory Rate 20 , O2 SAT 97 , Room Air, O2 Flow Rate . Vital Sign Comment: [high BP] Latest Shah Fall Score: 95 Fall Risk: High Risk Safety Measures: Call light Within Reach, Bed Alarm Zone 2, Side Rails Side Rails x2, Bed position Low and Locked. Fall Precautions: Door Sign Patient Fall Education Report given to [DAWN Thomas].
--- NOTE | 2020-07-28 19:49 | NUR ---
NURSE NOTES: Received patient in bed. A&OX1, confused, forgetful. Trying to get out of bed, reoriented. Bed in lowest position. Bed alarm on. Call light within reach. Will continue to monitor.
[2020-07-28 20:00] VITALS: BP 158/85
--- NOTE | 2020-07-28 20:05 | Cardiology Progress Note ---
Subjective DATE OF SERVICE: Jul 28, 2020 Still c/o back pain No SOB or chest discomfort Repeat EKG today reveals atrial fibrillation - rate controlled. Objective Last 24 Hour Vital Signs Date Time Temp Pulse Resp B/P (MAP) Pulse Ox O2 Delivery O2 Flow Rate FiO2 07/28/20 16:00 98.4 73 20 139/109 (119) 97 07/28/20 13:43 98.2 07/28/20 12:00 97.7 83 20 160/99 (119) 96 07/28/20 10:08 167/82 07/28/20 09:00 Room Air 07/28/20 08:00 97.7 68 20 167/82 (110) 97 07/28/20 04:00 98.2 64 20 127/69 (88) 96 07/28/20 00:00 97.9 92 20 123/77 (92) 96 07/27/20 21:30 179/94 (122) 07/27/20 21:00 Room Air HEENT: normal ENT inspection LUNGS: lungs clear bilaterally CARDIAC: normal rate, irregularly irregular ABDOMEN: normal bowel sounds, non tender EXTREMITIES: normal range of motion, No edema Laboratory Tests Test 07/28/20 05:38 White Blood Count 5.2 K/UL (4.8-10.8) Red Blood Count 4.37 M/UL (4.20-5.40) Hemoglobin 13.4 G/DL (12.0-16.0) Hematocrit 41.3 % (37.0-47.0) Mean Corpuscular Volume 95 FL (80-99) Mean Corpuscular Hemoglobin 30.7 PG (27.0-31.0) Mean Corpuscular Hemoglobin Concent 32.5 G/DL (32.0-36.0) Red Cell Distribution Width 11.7 % (11.6-14.8) Platelet Count 277 K/UL (150-450) Mean Platelet Volume 6.3 FL (6.5-10.1) L Neutrophils (%) (Auto) 59.5 % (45.0-75.0) Lymphocytes (%) (Auto) 26.5 % (20.0-45.0) Monocytes (%) (Auto) 6.3 % (1.0-10.0) Eosinophils (%) (Auto) 6.0 % (0.0-3.0) H Basophils (%) (Auto) 1.7 % (0.0-2.0) Sodium Level 143 MMOL/L (136-145) Potassium Level 2.9 MMOL/L (3.5-5.1) L Chloride Level 104 MMOL/L (98-107) Carbon Dioxide Level 34 MMOL/L (21-32) H Anion Gap 6 mmol/L (5-15) Blood Urea Nitrogen 11 mg/dL (7-18) Creatinine 0.7 MG/DL (0.55-1.30) Estimat Glomerular Filtration Rate > 60 mL/min (>60) Glucose Level 98 MG/DL (74-106) Calcium Level 9.1 MG/DL (8.5-10.1) Total Bilirubin 0.4 MG/DL (0.2-1.0) Aspartate Amino Transf (AST/SGOT) 22 U/L (15-37) Alanine Aminotransferase (ALT/SGPT) 22 U/L (12-78) Alkaline Phosphatase 99 U/L (46-116) Total Protein 7.0 G/DL (6.4-8.2) Albumin 3.2 G/DL (3.4-5.0) L Globulin 3.8 g/dL Albumin/Globulin Ratio 0.8 (1.0-2.7) L Thyroid Stimulating Hormone (TSH) 0.786 uiU/mL (0.358-3.740) Assessment/Plan Assessment/Plan Paroxysmal atrial fibrillation Acute compression fx Episodic BP elevations may be due to back pain Hypokalemia Acute pain Abnormal EKG suggesting incomplete RBBB. No clinical hx or symptoms to suggest structural heart disease Normal TSH Replace potassium Check Mg++ Full anticoagulation if no other contraindications Check 2D echo Pain control DVT prophyl Eugene Krishnan MD Jul 28, 2020 20:05
--- NOTE | 2020-07-28 21:14 | Consultation ---
DATE OF CONSULTATION: 07/26/2020 CARDIOLOGY CONSULTATION CONSULTING PHYSICIAN: Eugene Krishnan MD. REASON FOR CONSULTATION: Abnormal EKG. HISTORY OF PRESENT ILLNESS: This is a 80-year-old female. She had difficulty getting out of her bed due to back pain. She denied any recent fall or trauma. Her workup in the emergency room revealed a lumbar 2 compression fracture with small hematoma. The patient did not have any associated neurological symptoms. PAST MEDICAL HISTORY: Otherwise unremarkable. ALLERGIES: None. MEDICATIONS: None. SOCIAL HISTORY: Nonsmoker. No alcohol use. PHYSICAL EXAMINATION: VITAL SIGNS: Reviewed. Blood pressure labile. HEENT: Conjunctivae are pink. Oropharynx clear. NECK: Supple. Jugular venous pressure normal. LUNGS: Clear. CARDIAC: Regular rhythm and rate. Normal S1, S2 with a fourth heart sound. No murmur. ABDOMEN: Soft, nontender. EXTREMITIES: No edema. NEUROLOGIC: Nonfocal with reflexes 2+. LABORATORY AND DIAGNOSTIC DATA: Labs are reviewed, within normal limits. EKG with sinus rhythm, incomplete right bundle-branch block, and nonspecific ST change. IMPRESSION: 1. Lumbar compression fracture. 2. Abnormal EKG with clinically insignificant right bundle-branch block. 3. Prerenal azotemia due to mild hypovolemia. PLAN: 1. Pain control 2. DVT prophylaxis. 3. Cautious hydration. 4. Thyroid panel. 5. Repeat electrocardiogram. 6. We will follow. Eugene Krishnan M.D. DR: ORALIA JOB#: [id number] CC:
[2020-07-29] VITALS (7 sets, daily range): BP systolic 136–157; BP diastolic 71–89
[2020-07-29 06:49] LABS: ANION GAP 6 mmol/L (5-15); BLOOD UREA NITROGEN 12 mg/dL (7-18); CALCIUM 9.6 MG/DL (8.5-10.1); CARBON DIOXIDE 30 MMOL/L (21-32); CHLORIDE 105 MMOL/L (98-107); CREATININE 0.6 MG/DL (0.55-1.30); SODIUM 141 MMOL/L (136-145)
--- NOTE | 2020-07-29 07:30 | NUR ---
NURSE HAND-OFF: Important Events on Shift: Dr. Joy assessed patient. Per Dr. Joy, patient doesn't need MRI, need back brace, placement for SNF. Patient Status: confused Diet: Regular Pending Orders: Pending Results/Labs: Pending MD notification: Latest Vital Signs: Temperature 98.6 , Pulse 71 , B/P 141 /86 , Respiratory Rate 18 , O2 SAT 96 , Room Air, O2 Flow Rate . Vital Sign Comment: Latest Shah Fall Score: 85 Fall Risk: High Risk Safety Measures: Call light Within Reach, Bed Alarm Zone 2, Side Rails Side Rails x3, Bed position Low and Locked. Fall Precautions: Yellow Socks Yellow Gown Door Sign Patient Fall Education Report given to Sara SEYMOUR.
--- NOTE | 2020-07-29 07:50 | NUR ---
NURSE NOTES: Patient awake and alert,respirations unlabored . Patient sitting up in bed and eating breakfast.Report given Patient has no IV and Zaman catheter. DR Joy is aware and IV and Zaman can remain out.Bed alarm on,call light within reach.
--- NOTE | 2020-07-29 09:06 | NUR ---
RD ASSESSMENT & RECOMMENDATIONS SEE CARE ACTIVITY FOR COMPLETE ASSESSMENT DAILY ESTIMATED NEEDS: Needs based on Underweight 37.3kg 30-40 kcals/kg 2550-5463 total kcals 1-1.5 g protein/kg 37-56 g total protein 25-35ml/kcal mL/kg 933-1306 total fluid mLs NUTRITION DIAGNOSIS: Increased kcal and pro needs r/t underweight status as evidenced by noted upper body moderate wasting, underweight per guidelines, @84% [place] Body Weight. CURRENT DIET: regular PO DIET RECOMMENDATIONS: Regular diet/ texture per REPOSSESSION AGENT ADDITIONAL RECOMMENDATIONS: 1) Ensure TID 2) Obtain A1C, eval of BG 3) Monitor hydration status, improving; now no IV access 4) Daily calibrated bed scale wts 5) REPOSSESSION AGENT eval for appropriate texture
[2020-07-29] MEDS: Docusate 250mg cap ORAL SCH ×2 (09:22→18:39)
[2020-07-29] MEDS: Heparin 5000 units/ml inj SUBQ SCH ×2 (09:23→21:13)
--- NOTE | 2020-07-29 12:32 | NUR ---
SALES EFFECTIVENESS MANAGER NOTE SW spoke w/ Meli from ER [phone] that she was unable to locate the ambulance report. Pt reported to this SW that she called the ambulance. SW attempted to call Travis Gaines (possible numbers: [phone] (not answered), (not answered, vm was not set up. SW is unable to reach pt's son Travis Gaines at this time. Addendum: 07/29/20 at 1310 by [facility] Please refer CM note on 07/28/2020 1333 DCM spoke w/pt's son.
--- NOTE | 2020-07-29 12:32 | NUR ---
CLOUD SYSTEMS ADMINISTRATOR NOTES BACK BRACE TO BE DELIVERED TO THE FACILITY BY 1700.
[2020-07-29] MEDS ORDERED: XARELTO10 MG ORAL (16:54)
[2020-07-29] MEDS ORDERED: FAMOTIDINE20 MG ORAL (16:54)
[2020-07-29] MEDS ORDERED: HYDROCODON-ACE1 EA17 ORAL (16:54)
[2020-07-29] MEDS: HYDROcodone/Acetamin 10/325 tab ORAL PRN (17:07)
--- NOTE | 2020-07-29 18:26 | NUR ---
NURSE NOTES: Report given to Allie at [facility].[employer] called and time push back for cell feed department supervisor now at [phone].
--- NOTE | 2020-07-29 19:35 | NUR ---
NURSE HAND-OFF: Martha SEYMOUR Important Events on Shift:[] Patient Status: [uneventful Diet: [Regular] Pending Orders: [] Pending Results/Labs:[] Pending MD notification:[] Latest Vital Signs: Temperature 97.6 , Pulse 73 , B/P 145 /89 , Respiratory Rate 19 , O2 SAT 98 , Room Air, O2 Flow Rate . Vital Sign Comment: [] Latest Shah Fall Score: 85 Fall Risk: High Risk Safety Measures: Call light Within Reach, Bed Alarm Zone 2, Side Rails Side Rails x3, Bed position Low and Locked. Fall Precautions: Yellow Socks yes Yellow Gown Door Sign Patient Fall Education Report given to [].
--- NOTE | 2020-07-29 19:36 | NUR ---
NURSE NOTES: Received patient in bed. A&OX1, confused, forgetful. Waiting for discharge. Bed in lowest position. Bed alarm on. Call light within reach. Will continue to monitor.
--- NOTE | 2020-07-29 22:16 | NUR ---
NURSE NOTES: Patient discharge to [facility] with stable condition. Picked up by ambulance staff. ID band removed. All belonging were sent with patient including back brace. VS stable.
--- NOTE | 2020-07-30 01:59 | Discharge Summary ---
DATE OF ADMISSION: 07/25/2020 DATE OF DISCHARGE: 07/29/2020 ADMISSION DIAGNOSES: 1. Back pain. 2. Acute lumbar compression fracture. 3. Urinary retention. 4. Encephalopathy. 5. Dementia. DISCHARGE DIAGNOSES: 1. Back pain. 2. Acute lumbar compression fracture. 3. Urinary retention. 4. Encephalopathy. 5. Dementia. HOSPITAL COURSE: Patient was admitted with complaints of back pain. She had an acute L2 burst compression fracture . She did have some urinary retention that resolved. She briefly had a Zaman. A consultation has been obtained with Dr. Thao at [facility] who reviewed CAT scan readings, recommended that patient be treated with a brace, and follow up in a month with him in the office. Patient will be discharged to a longterm facility. Plan of care was discussed with patient's son. He was in agreement. DISCHARGE MEDICATIONS: Please see discharge medication list for discharge medications. DIET: Regular diet ACTIVITIES: Ad-antoine. Of note patient did have atrial fibrillation. Patient was seen by Cardiology and started on low-dose Xarelto. Patient will be monitored closely for bleeding. Hubert Joy M.D. DR: HUGO JOB#: [id number] CC:
== END 2020-07-29 22:15 | DRG 543 ==
LOC: EDBD 08:11 → EMR 08:49 → 4E 09:54 → EDBEDREQ 17:08 → 4E 20:06
DX: M48.56XA Collapsed vertebra, not elsewhere classified, lumbar region, initial encounter for fracture (principal); G93.40 Encephalopathy, unspecified; X58.XXXA Exposure to other specified factors, initial encounter; M48.061 Spinal stenosis, lumbar region without neurogenic claudication; F03.90 Unspecified dementia, unspecified severity, without behavioral disturbance, psychotic disturbance, mood disturbance, and anxiety; Y92.003 Bedroom of unspecified non-institutional (private) residence as the place of occurrence of the external cause; R33.9 Retention of urine, unspecified; E86.1 Hypovolemia; I48.0 Paroxysmal atrial fibrillation; E87.6 Hypokalemia; I45.10 Unspecified right bundle-branch block
CPT/HCPCS: 36415; 71045; 74176; 80048; 80053; 81003; 82550; 83690; 83735; 84443; 84484; 85025; 85610; 85730; 86850; 86900; 86901; 93005; 93306; 96361; 96374; 99285; J7030; J8499